=== PATIENT | female | born 1980 | race Caucasian/White ===

== ENCOUNTER 2019-08-31 13:39 | Outpatient (CLI) | payer BC ==
--- NOTE | 2019-08-31 15:24 | MRI ---
MRI RIGHT FOOT WITHOUT CONTRAST: HISTORY: S91.331D, had a splinter removed. Evaluate for foreign body. FINDINGS: Soft tissues: There is a small soft tissue defect at the plantar aspect of the forefoot, at the level of the third metatarsal neck. There is an ovoid fluid collection, which measures 7 mm in transverse x 5 mm in depth with a length of 16 mm. Within this fluid collection there appears to be a very thin, elongated foreign object, measuring approximately 1.5 to 1.6 cm. The edema extends up to the level of the flexor tendons, although not deep to the flexor tendons of t he third digit. The intrinsic musculature of the foot is without significant edema. There is no marrow signal replacement to suggest osteomyelitis. IMPRESSION: Plantar soft tissue wound with fluid collection as described, containing a thin linear 2 mm x 1.6 cm foreign object. This is just below the level of the dermis and below the skin surface 3-4 mm. No evid ence for osteomyelitis or pyomyositis. POS: CET
== END 2019-08-31 13:40 | disposition home or self-care (01) ==
LOC: SCSMRI 13:39
PROVIDERS: ATTEND Podiatrist
DX: S91.331D Puncture wound without foreign body, right foot, subsequent encounter (principal); M79.671 Pain in right foot